=== PATIENT | male | born 1980 | race Caucasian/White ===

== ENCOUNTER 2024-09-14 14:35 | Emergency (ER) | payer OTHER, SELFPAY ==
[2024-09-14 15:06] VITALS: BP 126/87; PULSE 82; RESP 18; TEMP 36.8; O2SAT 96; BMI 29.0
[2024-09-14 17:40] VITALS: BP 136/78; PULSE 71; RESP 18; O2SAT 97
--- NOTE | 2024-09-14 19:04 | ED.GENADULT ---
HPI - General Adult General Time Seen by Provider: 19:04 Date Seen: 09/14/24 Chief complaint: Chest Pain Stated complaint: Chest pain, anxiety Time Seen by Provider: 09/14/24 19:03 Source: patient and RN notes reviewed Mode of arrival: ambulatory Limitations: no limitations History of Present Illness HPI narrative: This 44-year-old male was brought in by a [facility] for concerns of some chest discomfort, left arm tingling. Patient notes that his left arm his just felt numb and tingly intermittently for about the last 2 weeks. He states he will stretch it out and just try rubbing it as it feels funny. He has not noted any neck pain. Today he went downstairs to work out, came back up stairs in ordered pizza for he and his daughter. He started to eat the pizza and did not feel well, started to feel dizzy and nauseated. He notes he only ate a small piece. He then went into the bathroom and was retching, started to feel like his vision was going, having tunnel vision, had chest discomfort, he states it was really more of a pressure not a pain. He was talking to his and she was concerned, called 911. He received aspirin and nitro without any relief, they did give him Benadryl which finally calmed him down. He does have some Ativan for use for anxiety at home, admits he has underlying anxiety but does not have symptoms to this level. He also notes when he started to have escalation of the symptoms that he felt a little jaw tension or maybe twitching on the right side. His left arm was numb and tingly with this as well. His blood pressure was 190 systolic with EMS. He did get the Benadryl IV. Now he just feels somewhat tired and wiped out. 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 He does have some social alcohol use but nothing concerning. He does note that his cholesterol is elevated and he is not been on medicines. He recently had about a 2 week episode where he was using some nicotine chew patches, did quit that. There is a history of nicotine use. His dad had a significant MS at age 42. There was a significant volume and acuity of patients and patient did need to wait. His initial arrival EKG was reassuring and initial point of care troponin normal. He is aware that we need to get follow-up labs. We did also review in context of his symptoms that the arm symptoms alone by itself would make me think potentially of neurologic issue such as brain or nerves. We did discuss such things as stroke, other brain issues as well as possible peripheral neuropathy. He and I discussed there are features in his history that certainly could be concerning for cardiac issues. His does work in [place]. She does understand that if we do serial troponins and they are normal, it does rule out an acute heart attack but does not mean that there cannot be underlying cardiac disease. He may need to follow-up for stress testing. He does state that he gets an executive physical through the [facility] and does do treadmill testing with monitoring of his oxygen. He does this test yearly. Related Data Home Medications ?Medication ?Instructions ?Recorded ?Confirmed No Known Home Medications 09/14/24 09/14/24 Allergies Allergy/AdvReac Type Severity Reaction Status Date / Time No Known Drug Allergies Allergy Verified 09/14/24 15:13 Review of Systems Status of ROS: Reports: 6 or more systems reviewed and unremarkable except as noted in History and below [facility] Social History How often do you have a drink containing alcohol: never AUDIT-C Alcohol total score: 0 Non-prescribed substance use: denies use Exam Const: Vital Signs, click to edit/add: Vital Signs - 24 hr 09/14/24 15:06 09/14/24 17:40 09/14/24 19:22 Temperature 98.3 F Pulse Rate [Right Pulse Oximeter] 82 71 Respiratory Rate 18 18 Blood Pressure [Ri ght Upper Arm] 126/87 136/78 Pulse Oximetry 96 97 99 Oxygen Delivery Me thod Room Air Room Air 09/14/24 20:21 Temperature Pulse Rate [Right Pulse Oximeter] 63 Respiratory Rate 16 Blood Pressure [Ri ght Upper Arm] 122/75 Pulse Oximetry 96 Oxygen Delivery Me thod Room Air This 44-year-old gentleman is alert, interactive, no apparent distress. Pupils equal round reactive, sclera clear, extraocular muscles intact. Symmetrical facial function. Neck supple, no adenopathy, no thyromegaly masses or nodules. Lungs are clear, good air entry, no wheezing crackles. CV regular rate and rhythm, no murmur. Abdomen is soft, nontender, nondistended, no organomegaly. He does states that his left arm just feels funny, on his fingers has normal symmetrical light touch sensation. He has no dysmetria, no tremors, strength is 5/5 and symmetric throughout his upper extremities. Patient is ambulatory into the ED of his own accord. Documenting provider has reviewed patient's vital signs: yes Course Course ED Course: We will get a portable chest x-ray, get a follow-up EKG and troponin. His admission EKG and troponin are reassuring. Have discussed neuro imaging and they would like to proceed with this, we will do a head CT and CTA head neck. If these are normal, given 2 weeks of symptoms, he can likely proceed outpatient and consider MRI of his brain, possible MRI of his neck, consideration of EMG if ongoing symptoms in his left arm and other imaging is normal. Reevaluation(s) Time of Reevaluation #1: 20:46 Reevaluation #1: Have brought patient copies of his x-ray in imaging reports. He understands that the CT angio reports are preliminary. We will get final formal reports from Neuro Radiology tomorrow. We did review his labs. On his head CT, there is some atherosclerotic changes in the carotid siphons. We did review that this certainly can be a risk in other vessels. He has not had a heart attack tonight and he does understand that we have not completely ruled out underlying atherosclerotic heart disease. I do think he should proceed to have cardiac stress testing when he is able to. Vital Signs Vital signs: Initial Vital Signs Temperature 98.3 F 09/14/24 15:06 Temperature Source Temporal Artery Scan 09/14/24 15:06 Pulse Rate 82 09/14/24 15:06 Pulse Rhythm Regular 09/14/24 15:06 Respiratory Rate 18 09/14/24 15:06 Blood Pressure 126/87 09/14/24 15:06 Blood Pressure Mean 100 09/14/24 15:06 Blood Pressure Position Sitting 09/14/24 15:06 Pulse Oximetry 96 09/14/24 15:06 Oxygen Delivery Method Room Air 09/14/24 15:06 Vital Signs Temperature 98.3 F 09/14/24 15:06 Pulse Rate 82 09/14/24 15:06 Respiratory Rate 18 09/14/24 15:06 Blood Pressure 126/87 09/14/24 15:06 Pulse Oximetry 96 09/14/24 15:06 Oxygen Delivery Method Room Air 09/14/24 15:06 Temperature 98.3 F 09/14/24 15:06 Pulse Rate 63 09/14/24 20:21 Respiratory Rate 16 09/14/24 20:21 Blood Pressure 122/75 09/14/24 20:21 Pulse Oximetry 96 09/14/24 20:21 Oxygen Delivery Method Room Air 09/14/24 20:21 Medical Decision Making Lab Data Lab results reviewed: Yes I reviewed the patient's lab results Lab results narrative: Follow-up POC troponin normal at 0.00 at 7:29 p.m. Labs: Lab Results 09/14/24 09/14/24 09/14/24 Range/Units 15:20 15:27 19:28 WBC 10.76 (4.50-11.00) K/uL RBC 4.87 (4.30-5.90) m/uL Hgb 15.2 (13.5-17.5) gm/dL Hct 43.9 (37.0-53.0) % MCV 90 (80-100) fL MCH 31 (26-34) pg MCHC 35 (32-36) gm/dL RDW Coeff of Kishan 11.9 (11.5-15.5) % Plt Count 229 (140-440) K/uL Neut % (Auto) 80.8 H (42.0-72.0) % Lymph % (Auto) 12.4 L (20-44) % [place] % (Auto) 4.9 (0.0-11.0) % Eos % (Auto) 1.2 (0.0-7.0) % Baso % (Auto) 0.4 (0.0-3.0) % Neut # (Auto) 8.70 H (1.7-7.0) K/uL Lymph # (Auto) 1.30 (0.90-2.90) K/uL [place] # (Auto) 0.50 (0.00-0.90) K/UL Eos # (Auto) 0.13 (0.00-0.50) K/uL Baso # (Auto) 0.04 (0.00-0.30) K/uL Abs Immat Gran (auto) 0.03 (0.00-0.30) K/uL Imm/Tot Granulo (auto) 0.3 % Sodium 137 (135-149) mmol/L Potassium 3.7 (3.6-5.1) mmol/L Chloride 106 (96-114) mmol/L Carbon Dioxide 22 (20-32) mmol/L Anion Gap 9 (7-15) mEq/L BUN 14 (5-24) mg/dL Creatinine 0.7 (0.5-1.5) mg/dL Estimated Creat Clear 141.93 Estimated GFR 116 ml/min Glucose 91 (60-115) mg/dL Lactate 0.8 (0.5-1.9) mmol/L Calcium 8.9 (8.4-10.6) mg/dL Total Bilirubin 0.4 (0.1-1.5) mg/dL Direct Bilirubin 0.3 (0.0-0.5) mg/dL AST 31 (12-35) U/L ALT 44 (4-50) U/L Alkaline Phosphatase 62 (40-150) U/L C-Reactive Protein < 0.5 L (0.5-1.0) mg/dL NT-Pro-B Natriuret Pep < 20 pg/mL Total Protein 7.2 (6.0-8.3) g/dL Albumin 4.3 (3.3-5.0) g/dL Lipase 56 (23-300) U/L POC Troponin I 0.00 L (0.01-0.04) ng/ml Imaging Data CT scan - head: Attestation: I have reviewed the pertinent imaging results. Radiologist's impression: Patient: RASHI DYER Facility:?[facility] Patient ID:?[id number] Site Patient ID:?[id number]. Site :?1980 Study:?CT-Head W/O-09/14/2024 7:55:39 PM Ordering Physician:Carlyle Corrigan Final Report: INDICATION: Left arm tingling. Vision changes. TECHNIQUE: Noncontrast CT images of the brain. COMPARISON: None. FINDINGS: The ventricles and sulci are within normal limits for patient age. No mass effect or midline shift. Trevino-white differentiation is maintained. No acute intracranial hemorrhage or pathologic extra-axial fluid collection. Atherosclerotic calcifications in the carotid siphons. Globes are symmetric. Calvarium is intact. Mild paranasal sinus mucosal thickening. Mastoid air cells are clear. IMPRESSION: No acute intracranial hemorrhage or mass effect. Please note that all CT scans at this facility use dose modulation, iterative reconstruction, and/or weight-based dosing when appropriate to reduce radiation dose to as low as reasonably achievable. Dictated by Kei Kang MD @ 09/14/2024 8:13:21 PM (Electronic Signature) CT- Other: Attestation: I have reviewed the pertinent imaging results. Radiologist's impression: Patient: RASHICATRINA DYER Facility:?[facility] Patient ID:?[id number] Site Patient ID:?[id number]. Site :?1980 Study:?CT-Head Angio W/ 95CC ISOVUE 370-09/14/2024 7:56:04 PM Ordering Physician:?Stephanie Corrigan Preliminary Report: No proximal large vessel occlusion or cervical arterial stenosis. Read by:?Kei Kang MD @09/14/2024 8:15:34 PM Patient: RASHI DYER Facility:?[facility] Patient ID:?[id number] Site Patient ID:?[id number]. Site :?1980 Study:?CT-Neck Angio Angio W/ 95 CC ISOVUE 370-09/14/2024 7:56:37 PM Ordering Physician:?Stephanie Corrigan Preliminary Report: No proximal large vessel occlusion or cervical arterial stenosis. Read by:?Kei Kang MD @09/14/2024 8:15:45 PM ECG Data Attestation: I personally reviewed and interpreted this ECG as follows: (Normal sinus rhythm, 80 beats per minute. Flipped T-waves lead V1 and 3, AVF without any ST segment changes. Upright and 2.) Prior ECG tracings: not available for review Interpretation: Second EKG timed 7:57 p.m. shows normal sinus rhythm, 71 beats per minute. Flipped T-waves V1 and lead 3, nonspecific change AVF now. Discharge Plan Discharge Clinical Impression: Chest pain, Numbness and tingling in left arm Patient Disposition: Home, Self-Care Condition: Stable Instructions: Chest Pain (ED), Paresthesia (ED) Additional Instructions: You do need to follow up in clinic with your primary care provider. Discussed stress testing, discussed further workup of your left arm numbness tingling sensation. Would consider MRI of brain with and without contrast, consideration of neck imaging and potential EMG if other testing is coming back negative. Will ultimately defer to your primary care provider regarding this. If you do have high cholesterol, you really should consider starting treatment for this. Risk factor reduction for cardiac disease can be reviewed with your primary care provider. In the meantime, if you have recurrent or worsening symptoms, have new concerning symptoms, do recommend re-evaluation Prescriptions: No Action No Known Home Medications Follow Up/Referrals: Santosh Marcial MD [Primary Care Provider] - Stand Alone Forms: IngagePatient Info Instructions
--- NOTE | 2024-09-14 19:04 | CRLHL7_ITS ---
For Patients: As a result of the Cures Act, medical imaging exams and procedure reports are released immediately into your electronic medical record. You may view this report before your referring provider. If you have questions, please contact your health care provider. INDICATION: : Chest pain COMPARISON: None TECHNIQUE: One view(s) of the chest FINDINGS: The cardiomediastinal silhouette and pulmonary vasculature are unremarkable. There is no focal airspace consolidation, pleural effusion, or pneumothorax. No displaced fractures. IMPRESSION: No acute cardiopulmonary process. Dictated by Juwan Menjivar MD @ 09/14/2024 8:18:41 PM (Electronically Signed)
[2024-09-14 19:22] VITALS: O2SAT 99
--- NOTE | 2024-09-14 19:23 | CRLHL7_ITS ---
For Patients: As a result of the Century Cures Act, medical imaging exams and procedure reports are released immediately into your electronic medical record. You may view this report before your referring provider. If you have questions, please contact your health care provider. INDICATION: Left arm tingling. Vision changes. TECHNIQUE: Noncontrast CT images of the brain. COMPARISON: None. FINDINGS: The ventricles and sulci are within normal limits for patient age. No mass effect or midline shift. Trevino-white differentiation is maintained. No acute intracranial hemorrhage or pathologic extra-axial fluid collection. Atherosclerotic calcifications in the carotid siphons. Globes are symmetric. Calvarium is intact. Mild paranasal sinus mucosal thickening. Mastoid air cells are clear. IMPRESSION: No acute intracranial hemorrhage or mass effect. Please note that all CT scans at this facility use dose modulation, iterative reconstruction, and/or weight-based dosing when appropriate to reduce radiation dose to as low as reasonably achievable. Dictated by Kei Kang MD @ 09/14/2024 8:13:21 PM (Electronically Signed)
--- NOTE | 2024-09-14 19:23 | CRLHL7_ITS ---
For Patients: As a result of the Century Cures Act, medical imaging exams and procedure reports are released immediately into your electronic medical record. You may view this report before your referring provider. If you have questions, please contact your health care provider. INDICATION: Acute stroke, left arm tingling, vision changes. TECHNIQUE: CTA head with contrast bolus tracking, 3D angiographic rendering using maximum intensity projection (MIP) and images permanently archived. FINDINGS: There is normal opacification of the intracranial vasculature. There is no large vessel occlusion. No aneurysm is identified. IMPRESSION: Unremarkable head CTA. Please note that all CT scans at this facility use dose modulation, iterative reconstruction, and/or weight-based dosing when appropriate to reduce radiation dose to as low as reasonably achievable. Dictated by Viktor Abbott MD @ 09/14/2024 9:49:45 PM (Electronically Signed)
--- NOTE | 2024-09-14 19:23 | CRLHL7_ITS ---
For Patients: As a result of the Century Cures Act, medical imaging exams and procedure reports are released immediately into your electronic medical record. You may view this report before your referring provider. If you have questions, please contact your health care provider. INDICATION: Acute stroke. TECHNIQUE: CTA neck with contrast bolus tracking, 3D angiographic rendering using maximum intensity projection (MIP) and images permanently archived. FINDINGS: There is no significant carotid artery stenosis or dissection. There is no significant vertebral artery stenosis or dissection. The soft tissues of the neck are within normal limits. The cervical spine is in normal alignment. Degenerative changes are noted in the cervical spine. IMPRESSION: Unremarkable neck CTA. No significant carotid or vertebral artery stenosis or dissection. Please note that all CT scans at this facility use dose modulation, iterative reconstruction, and/or weight-based dosing when appropriate to reduce radiation dose to as low as reasonably achievable. Dictated by Viktor Abbott MD @ 09/14/2024 9:51:06 PM (Electronically Signed)
[2024-09-14 19:36] LABS: Lactate* 0.8 mmol/L (0.5-1.9)
[2024-09-14 19:48] LABS: Basophils Absolute Auto 0.04 K/uL (0.00-0.30); Basophils Percent Auto 0.4 % (0.0-3.0); Eosinophils Absolute Auto 0.13 K/uL (0.00-0.50); Eosinophils Percent Auto 1.2 % (0.0-7.0); Hematocrit 43.9 % (37.0-53.0); Hemoglobin* 15.2 gm/dL (13.5-17.5); Immature Granulocytes Abs Auto 0.03 K/uL (0.00-0.30); Immature Granulocytes Pct Auto 0.3 %; Lymphocytes Percent Auto 12.4 % (20-44); Mean Corpuscular HGB Conc 35 gm/dL (32-36); Mean Corpuscular Hemoglobin 31 pg (26-34); Mean Corpuscular Volume 90 fL (80-100); Monocytes Percent Auto 4.9 % (0.0-11.0); Neutrophils Percent Auto 80.8 % (42.0-72.0); Platelet Count* 229 K/uL (140-440); RDW Coefficient of Variation % 11.9 % (11.5-15.5); Red Blood Count 4.87 m/uL (4.30-5.90); White Blood Count* 10.76 K/uL (4.50-11.00)
[2024-09-14 20:03] LABS: Chloride* 106 mmol/L (96-114)
[2024-09-14 20:04] LABS: Albumin* 4.3 g/dL (3.3-5.0); Potassium* 3.7 mmol/L (3.6-5.1); Sodium* 137 mmol/L (135-149)
[2024-09-14 20:06] LABS: Creatinine* 0.7 mg/dL (0.5-1.5); Est. Creatinine Clearance* 141.93; Estimated Glomerular Filt Rate 116 ml/min
[2024-09-14 20:07] LABS: Alanine Aminotransferase* 44 U/L (4-50); Alkaline Phosphatase* 62 U/L (40-150); Anion Gap 9 mEq/L (7-15); Aspartate Amino Transferase* 31 U/L (12-35); Bilirubin Direct* 0.3 mg/dL (0.0-0.5); Bilirubin Total* 0.4 mg/dL (0.1-1.5); Blood Urea Nitrogen* 14 mg/dL (5-24); Calcium* 8.9 mg/dL (8.4-10.6); Carbon Dioxide* 22 mmol/L (20-32); Glucose* 91 mg/dL (60-115); Total Protein* 7.2 g/dL (6.0-8.3)
[2024-09-14 20:08] LABS: Lipase* 56 U/L (23-300)
[2024-09-14 20:10] LABS: Slide Review Reflex No
[2024-09-14 20:12] LABS: C Reactive Protein* < 0.5 mg/dL (0.5-1.0)
[2024-09-14 20:17] LABS: NT Pro B Type NatriureticPept* < 20 pg/mL
[2024-09-14 20:21] VITALS: BP 122/75; PULSE 63; RESP 16; O2SAT 96
== END 2024-09-14 21:08 | disposition home or self-care (01) ==
PROVIDERS: Emergency Provider Family Medicine; PCP Family Medicine
DX: R07.9 Chest pain, unspecified (principal); R20.0 Anesthesia of skin
CPT/HCPCS: 36415; 70450; 70496; 70498; 71045; 80053; 82248; 83605; 83690; 83880; 84484; 85025; 86140; 93005; 94761; 99284; 99285; Q9967